=== PATIENT | female | born 1995 | race Caucasian/White ===

== ENCOUNTER 2017-02-09 16:16 | Emergency (ER) | payer OTHER ==
[~2017-02-09] VITALS: Ht 175.3 cm; Wt 61.5 kg
[2017-02-09 16:18] VITALS: TEMP 36.6; Ht 175.3 cm; Wt 61.5 kg
[2017-02-09] MEDS ORDERED: ACETAMINOPHEN 500 MG TAB PO STA (16:33)
[2017-02-09] MEDS ORDERED: PROMETHAZINE HCL INJ 25 MG/ML 1 ML VIAL IV STA (16:33)
[2017-02-09] MEDS ORDERED: KETOROLAC TROMETHAMINE 30 MG/ML VIAL IV STA (16:33)
[2017-02-09] MEDS ORDERED: SODIUM CHLORIDE 0.9% 1000ML 2,000 ML IV STA (16:33)
[2017-02-09] MEDS ORDERED: PROMETHAZINE HCL INJ 12.5 MG in SODIUM CHLORIDE 0.9% 50ML 50 ML IV ONE (16:45)
--- NOTE | 2017-02-09 16:45 | EMERGENCY ROOM VISIT NOTE ---
History Report prepared by Jazmín: Demond Umanzor Under the Supervision of: Dr. Yunior Kay M.D. First contact with patient: 16:29 Chief Complaint: VOMITING Stated Complaint: LIGHTHEADED,SHAKING,VOMITING History of Present Illness The patient is a 21 year old female who presents to the Emergency Room with complaints of persistent vomiting beginning two hours ago. She also complains of shakiness, abdominal cramping, generalized body pain, and lightheadedness. She notes that she started her period this morning. The patient states that she felt fine yesterday and upon waking up today. She rates the pain from her abdominal cramping as a 10/10 in severity. She denies eating anything abnormal. She has no history of similar symptoms. The patient denies any chance of . She denies any urinary symptoms, or fevers. She has taken Midol for her cramping, but vomited it up shortly afterwards. Source of History: patient Onset: Today Quality: other (vomiting) Timing: other (persistent) Associated Symptoms: + abdominal pain (cramping), No fevers, No urinary symptoms Note: Additional symptoms: generalized body pain, shakiness, lightheadedness. Review of Systems See HPI for pertinent positives & negatives. A total of 10 systems reviewed and were otherwise negative. Past Medical & Surgical Medical Problems: (1) Cellulitis of right external ear (2) Dental infection (3) Facial cellulitis (4) No Known Active Medical Problems (5) Pain, dental (6) Urinary tract infection Family History No pertinent family history stated. Social History Smoking Status: Never Smoker Occupation Status: student Current/Historical Medications Scheduled Ibuprofen (Midol), 2 TABS PO PRN UD Simvastatin (Zocor), 10 MG PO QPM Allergies Coded Allergies: Amoxicillin (Verified Allergy, Intermediate, HIVES, 02/09/17) Clavulanic Acid (Verified Allergy, Intermediate, HIVES, 02/09/17) Physical Exam Vital Signs Date Time Temp Pulse Resp B/P (MAP) Pulse Ox O2 Delivery O2 Flow Rate FiO2 02/09/17 19:34 75 16 115/72 99 02/09/17 18:17 69 15 113/62 100 02/09/17 16:18 36.6 119 18 130/81 99 Room Air Physical Exam GENERAL: Patient is in moderate distress secondary to pain HEENT: No acute trauma, normocephalic atraumatic, mucous membranes moist, no nasal congestion, no scleral icterus. NECK: No stridor, no adenopathy, no meningismus, trachea is midline. LUNGS: Clear to auscultation bilaterally, no wheeze, no rhonchi, breath sounds equal. HEART: Tachycardic with a regular rhythm. No murmurs. ABDOMEN: Moderately tender over the mid-low pelvis, soft, bowel sounds positive , no hernias, no peritonitis. EXTREMITIES: No cyanosis or edema, full range of motion of all the joints without pain or difficulty, no signs for acute trauma. NEUROLOGIC: Oriented x 3, no acute motor or sensory deficits, no focal weakness. SKIN: No rash, no jaundice, no diaphoresis. Medical Decision & Procedures ER Provider Diagnostic Interpretation: Radiology results as stated below per my review and radiologist interpretation: ULTRASOUND OF THE PELVIS FINDINGS: Uterus: The uterus is normal in size and echotexture, measuring 8.2 x 4.8 x 5.0 cm. Endometrium: The endometrium is normal in appearance, and the endometrial stripe is normal in thickness measuring up to 0.9 cm. Ovaries: The ovaries are normal in size and morphology. The right ovary measures 3.6 x 2.3 x 2.7 cm and the left ovary measures 3.7 x 2.0 x 3.0 cm. Small ovarian follicles are noted. Normal Doppler waveforms are shown within both ovaries. Pelvis: There is trace free fluid in the cul-de-sac. No concerning adnexal lesion is seen. IMPRESSION: 1. Unremarkable transabdominal sonographic assessment of the pelvis. 2. There is trace and likely physiologic free fluid in the cul-de-sac. 3. The patient declined the endovaginal examination. Electronically signed by: Yunior Nagy M.D. PA CHEST WITH ABDOMINAL SERIES FINDINGS: A PA chest radiograph is compared to study dated 11/13/2012. The cardiomediastinal silhouette is unremarkable. The lungs and pleural spaces are clear. No pneumothorax is seen. The bony thorax is grossly intact. Supine and erect abdominal radiographs are obtained. No prior studies are available for comparison at the time of dictation. There is a nonobstructed abdominal bowel gas pattern. Mild colonic fecal retention is observed. No evidence of intraperitoneal free air is seen. There are no abnormal abdominal calcifications. The lumbosacral spine and bony pelvis appear intact. IMPRESSION: 1. No active disease in the chest. 2. Nonobstructed abdominal bowel gas pattern. Electronically signed by: Yunior Nagy M.D. Laboratory Results 02/09/17 16:40 Red Blood Count 4.04, Mean Corpuscular Volume 84.7, Mean Corpuscular Hemoglobin 30.0, Mean Corpuscular Hemoglobin Concent 35.4, Mean Platelet Volume 9.3, Neutrophils (%) (Auto) 66.2, Lymphocytes (%) (Auto) 26.2, Monocytes (%) (Auto) 6.1, Eosinophils (%) (Auto) 0.8, Basophils (%) (Auto) 0.4, Neutrophils # (Auto) 6.57, Lymphocytes # (Auto) 2.60, Monocytes # (Auto) 0.61, Eosinophils # (Auto) 0.08, Basophils # (Auto) 0.04 02/09/17 16:40 Test 02/09/17 16:40 02/09/17 18:00 White Blood Count 9.93 K/uL (4.8-10.8) Red Blood Count 4.04 M/uL (4.2-5.4) Hemoglobin 12.1 g/dL (12.0-16.0) Hematocrit 34.2 % (37-47) Mean Corpuscular Volume 84.7 fL (80-100) Mean Corpuscular Hemoglobin 30.0 pg (25-34) Mean Corpuscular Hemoglobin Concent 35.4 g/dl (32-36) Platelet Count 260 K/uL (130-400) Mean Platelet Volume 9.3 fL (7.4-10.4) Neutrophils (%) (Auto) 66.2 % Lymphocytes (%) (Auto) 26.2 % Monocytes (%) (Auto) 6.1 % Eosinophils (%) (Auto) 0.8 % Basophils (%) (Auto) 0.4 % Neutrophils # (Auto) 6.57 K/uL (1.4-6.5) Lymphocytes # (Auto) 2.60 K/uL (1.2-3.4) Monocytes # (Auto) 0.61 K/uL (0.11-0.59) Eosinophils # (Auto) 0.08 K/uL (0-0.5) Basophils # (Auto) 0.04 K/uL (0-0.2) RDW Standard Deviation 38.3 fL (36.4-46.3) RDW Coefficient of Variation 12.4 % (11.5-14.5) Immature Granulocyte % (Auto) 0.3 % Immature Granulocyte # (Auto) 0.03 K/uL (0.00-0.02) Anion Gap 16.0 mmol/L (3-11) Est Creatinine Clear Calc Drug Dose 114.6 ml/min Estimated GFR () 130.9 Estimated GFR (Non- 112.9 BUN/Creatinine Ratio 14.9 (10-20) Calcium Level 9.2 mg/dl (8.5-10.1) Total Bilirubin 0.2 mg/dl (0.2-1) Aspartate Amino Transf (AST/SGOT) 14 U/L (15-37) Alanine Aminotransferase (ALT/SGPT) 17 U/L (12-78) Alkaline Phosphatase 53 U/L (45-117) Total Protein 7.6 gm/dl (6.4-8.2) Albumin 4.0 gm/dl (3.4-5.0) Globulin 3.6 gm/dl (2.5-4.0) Albumin/Globulin Ratio 1.1 (0.9-2) Lipase 158 U/L (73-393) Human Chorionic Gonadotropin, Qual NEG (NEG) Urine Color YELLOW Urine Appearance CLOUDY (CLEAR) Urine pH 7.5 (4.5-7.5) Urine Specific [place] 1.019 (1.000-1.030) Urine Protein NEG (NEG) Urine Glucose (UA) NEG (NEG) Urine Ketones NEG (NEG) Urine Occult Blood TRACE (NEG) Urine Nitrite NEG (NEG) Urine Bilirubin NEG (NEG) Urine Urobilinogen NEG (NEG) Urine Leukocyte Esterase NEG (NEG) Urine WBC (Auto) 1-5 /hpf (0-5) Urine RBC (Auto) 0-4 /hpf (0-4) Urine Hyaline Casts (Auto) 5-10 /lpf (0-5) Urine Epithelial Cells (Auto) >30 /lpf (0-5) Urine Bacteria (Auto) NEG (NEG) Urine Renal Epithelial Cells /lpf (0-5) Urine Crystals AMORPHOUS SEDIMENT (NONE Laboratory results reviewed by me. Medications Administered Medications (Trade) Dose Ordered Sig/Savanah Route Start Time Stop Time Status Last Admin Dose Admin Ketorolac Tromethamine (Toradol Inj) 30 mg NOW STAT IV 02/09/17 16:33 02/09/17 16:36 DC 02/09/17 17:19 30 MG Acetaminophen (Tylenol Tab) 1,000 mg NOW STAT PO 02/09/17 16:33 02/09/17 16:36 DC 02/09/17 17:17 1,000 MG Sodium Chloride 2,000 ml @ 999 mls/hr Q2H1M STAT IV 02/09/17 16:33 02/09/17 18:33 DC 02/09/17 17:01 999 MLS/HR Promethazine HCl 12.5 mg/Sodium Chloride 50.5 ml @ 202 mls/hr NOW ONCE IV 02/09/17 16:45 02/09/17 16:59 DC 02/09/17 17:01 202 MLS/HR Ondansetron HCl (ZOFRAN ODT 4MG Home Pack) 1 homepack UD ONCE PO 02/09/17 19:30 02/09/17 19:31 DC 02/09/17 19:34 1 HOMEPACK ED Course 1630: The patient was evaluated in room C11B. A complete history and physical exam was performed. 1633: Ordered Sodium Chloride 2000 ml @ 999 mls/hr IV, Tylenol Tab 1000 mg PO, Toradol Inj 30 mg IV, Phenergan Inj 12.5 mg IV. 1645: Ordered Promethazine HCl 12.5 mg/Sodium Chloride 50.5 ml @ 202 mls/hr IV. 1930: Ordered Zofran Odt 4 mg homepack PO. Reevaluated the patient. Discussed results and discharge instructions: she verbalized understanding and agreement. The patient is ready for discharge. Medical Decision The patient is a 21 year old female who presents to the ED with complaints of vomiting. Differential diagnoses considered include menstrual cramping, ovarian cyst, ovarian torsion, bowel obstruction, electrolyte imbalance, appendicitis, and UTI. There is no leukocytosis or concerning anemia. No significant electrolyte abnormality, kidney failure or hepatitis. There is no pancreatitis. testing is negative. Pelvic ultrasound does not show any large ovarian cyst, no evidence for ovarian torsion. Obstruction series showed no bowel obstruction , pneumonia or free air. Urinalysis shows contamination, no infection. The patient was given IV saline, IV Phenergan, IV Toradol and oral Tylenol, she feels markedly better. The patient is not toxic, she is not febrile. She has done well in our emergency room. The patient is being discharged home. Her pelvic cramping and vomiting may be related to her menstrual cycle. I find nothing emergent. The patient was encouraged to start with a bland diet, I gave some Zofran for nausea. If worsening, she can return. Impression Primary Impression: Pelvic pain Additional Impression: Vomiting Scribe Attestation The scribe's documentation has been prepared under my direction and personally reviewed by me in its entirety. I confirm that the note above accurately reflects all work, treatment, procedures, and medical decision making performed by me. Departure Information Dispostion Home / Self-Care Referrals No Doctor, Assigned (PCP) Forms HOME CARE DOCUMENTATION FORM, IMPORTANT VISIT INFORMATION Patient Instructions My [facility] Additional Instructions bland diet---crackers, soup, gatorade, toast motrin/tylenol for pain rest fluids zofran 1-2 tab every 6 hours for nausea as needed return if worsening lab testing today was all ok as discussed, imaging was ok as well Problem Qualifiers
[2017-02-09] MEDS ORDERED: IBUP1CAP PO (16:47)
[2017-02-09 16:50] LABS: HEMATOCRIT 34.2 % (37-47); MEAN CELL VOLUME 84.7 fL (80-100); MEAN CORPUSCULAR HGB CONC 35.4 g/dl (32-36); MEAN PLATELET VOLUME 9.3 fL (7.4-10.4); PLATELET COUNT 260 K/uL (130-400); RED BLOOD COUNT 4.04 M/uL (4.2-5.4); WHITE BLOOD COUNT 9.93 K/uL (4.8-10.8)
[2017-02-09 17:10] LABS: BUN/CREATININE RATIO 14.9 (10-20); CALCIUM 9.2 mg/dl (8.5-10.1); CREATININE 0.76 mg/dl (0.60-1.20); POTASSIUM 3.1 mmol/L (3.5-5.1)
[2017-02-09 17:13] LABS: ALB/GLOB RATIO 1.1 (0.9-2)
[2017-02-09 17:18] LABS: PREG INTERNAL NEGATIVE QC NEG CLEAR BACKGROUND; PREG INTERNAL POSITIVE QC POS CONTROL LINE
[2017-02-09 17:19] LABS: BASO % 0.4 %; BASO ABS # 0.04 K/uL (0-0.2); COMPLETE YES; EOS % 0.8 %; IG% 0.3 %; LYMPH % 26.2 %; MONO % 6.1 %; NEUT % 66.2 %
--- NOTE | 2017-02-09 17:52 | DIAGNOSTIC IMAGING REPORT ---
ULTRASOUND OF THE PELVIS CLINICAL HISTORY: Pelvic pain. Nausea and vomiting. Diarrhea. COMPARISON STUDY: Pelvic ultrasound dated 10/14/2011. TECHNIQUE: Real-time, grayscale, and color flow sonography of the pelvis is performed transabdominally. Images are reviewed in the transverse and longitudinal planes. The patient declined the endovaginal examination. FINDINGS: Uterus: The uterus is normal in size and echotexture, measuring 8.2 x 4.8 x 5.0 cm. Endometrium: The endometrium is normal in appearance, and the endometrial stripe is normal in thickness measuring up to 0.9 cm. Ovaries: The ovaries are normal in size and morphology. The right ovary measures 3.6 x 2.3 x 2.7 cm and the left ovary measures 3.7 x 2.0 x 3.0 cm. Small ovarian follicles are noted. Normal Doppler waveforms are shown within both ovaries. Pelvis: There is trace free fluid in the cul-de-sac. No concerning adnexal lesion is seen. IMPRESSION: 1. Unremarkable transabdominal sonographic assessment of the pelvis. 2. There is trace and likely physiologic free fluid in the cul-de-sac. 3. The patient declined the endovaginal examination. Electronically signed by: Yunior Nagy M.D. 02/09/2017 5:50 PM Dictated Date/Time: 02/09/2017 5:49 PM
[2017-02-09 18:40] LABS: URINE APPEARANCE CLOUDY (CLEAR); URINE BILIRUBIN NEG (NEG); URINE COLOR YELLOW; URINE EPITHELIAL CELL AUTO >30 /lpf (0-5); URINE NITRITE NEG (NEG); URINE PH 7.5 (4.5-7.5); URINE SPECIFIC GRAVITY 1.019 (1.000-1.030); UROBILINOGEN NEG (NEG); ZZUR CULT IF INDIC CLEAN CATCH NO
[2017-02-09 18:49] LABS: MANUAL MICROSCOPIC REQUIRED? NO; REVIEW REQ? YES
--- NOTE | 2017-02-09 18:59 | DIAGNOSTIC IMAGING REPORT ---
PA CHEST WITH ABDOMINAL SERIES CLINICAL HISTORY: Nausea and vomiting. Generalized abdominal pain. FINDINGS: A PA chest radiograph is compared to study dated 11/13/2012. The cardiomediastinal silhouette is unremarkable. The lungs and pleural spaces are clear. No pneumothorax is seen. The bony thorax is grossly intact. Supine and erect abdominal radiographs are obtained. No prior studies are available for comparison at the time of dictation. There is a nonobstructed abdominal bowel gas pattern. Mild colonic fecal retention is observed. No evidence of intraperitoneal free air is seen. There are no abnormal abdominal calcifications. The lumbosacral spine and bony pelvis appear intact. IMPRESSION: 1. No active disease in the chest. 2. Nonobstructed abdominal bowel gas pattern. Electronically signed by: Yunior Nagy M.D. 02/09/2017 6:57 PM Dictated Date/Time: 02/09/2017 6:56 PM
[2017-02-09] MEDS ORDERED: ONDANSETRON HOME PACK 4MG OD TAB PO ONE (19:30)
[2017-02-09 19:34] VITALS: BP 115/72; PULSE 75; O2SAT 99
[2017-02-09] MEDS ORDERED: SIMV10TA5 PO (23:37)
== END 2017-02-09 19:36 | disposition home or self-care (01) ==
LOC: C.EDB 16:17 → C.EDC 19:36
DX: R10.2 Pelvic and perineal pain (principal); R11.10 Vomiting, unspecified

== ENCOUNTER 2017-03-12 09:36 | Emergency (ER) | payer OTHER ==
[~2017-03-12] VITALS: Ht 175.3 cm; Wt 61.1 kg
[~2017-03-12 09:36] MED LIST: IBUP1CAP PO; SIMV10TA5 PO
[2017-03-12 09:38] VITALS: TEMP 36.5; Ht 175.3 cm; Wt 61.1 kg
[2017-03-12 10:34] LABS: BASO % 0.4 %; BASO ABS # 0.03 K/uL (0-0.2); COMPLETE YES; EOS % 0.6 %; HEMATOCRIT 36.4 % (37-47); IG% 0.1 %; LYMPH % 16.5 %; LYMPH ABS # 1.39 K/uL (1.2-3.4); MEAN CELL VOLUME 86.7 fL (80-100); MEAN CORPUSCULAR HGB CONC 34.6 g/dl (32-36); MEAN PLATELET VOLUME 9.6 fL (7.4-10.4); MONO % 5.2 %; NEUT % 77.2 %; PLATELET COUNT 220 K/uL (130-400)
[2017-03-12] MEDS ORDERED: KETOROLAC TROMETHAMINE 30 MG/ML VIAL IV STA (10:45)
[2017-03-12] MEDS ORDERED: PROMETHAZINE HCL INJ 25 MG in SODIUM CHLORIDE 0.9% 50ML 50 ML IV STA (10:45)
[2017-03-12] MEDS ORDERED: SODIUM CHLORIDE 0.9% 1000ML 1,000 ML IV STA ×2 (10:45)
[2017-03-12 10:51] LABS: URINE APPEARANCE CLOUDY (CLEAR); URINE BILIRUBIN NEG (NEG); URINE COLOR YELLOW; URINE NITRITE NEG (NEG); URINE PH 7.5 (4.5-7.5); URINE SPECIFIC GRAVITY 1.024 (1.000-1.030); UROBILINOGEN NEG (NEG)
[2017-03-12 10:53] LABS: ALT/SGPT 16 U/L (12-78); AST/SGOT 12 U/L (15-37); BLOOD UREA NITROGEN 8 mg/dl (7-18); CALCIUM 8.8 mg/dl (8.5-10.1); CARBON DIOXIDE 26 mmol/L (21-32); CHLORIDE 110 mmol/L (98-107); CREATININE 0.75 mg/dl (0.60-1.20); GLUCOSE 95 mg/dl (70-99); POTASSIUM 3.6 mmol/L (3.5-5.1); SODIUM 141 mmol/L (136-145)
[2017-03-12 10:54] LABS: PARTIAL THROMBOPLASTIN RATIO 0.9; PROTHROMBIN TIME (PATIENT) 11.1 SECONDS (9.0-12.0)
[2017-03-12 10:56] LABS: ALKALINE PHOSPHATASE 50 U/L (45-117)
--- NOTE | 2017-03-12 11:10 | EMERGENCY ROOM VISIT NOTE ---
History Report prepared by Jazmín: Toshia Plasencia Under the Supervision of: Dr. Augusto Conti M.D. First contact with patient: 09:49 Chief Complaint: PELVIC PAIN Stated Complaint: SEVERE CRAMPS, PELVIC PAIN, VOMITING History of Present Illness The patient is a 21 year old white female with no significant past medical history who presents to the ED with a cc of severe pelvic pain beginning this morning. Positive lower abdominal pain, nausea, vomiting, lightheadedness. Negative urinary symptoms, recent travel, recent trauma or injury, sick contacts. The patient states that she started bleeding with her menstrual cycle this morning and she is having severe lower abdominal cramping. She rates her pain as a 9/10 in severity. She is also complaining of nausea and vomiting and states that she has vomited 3 times in the past 3.5 hours. She took Tylenol for her pain, but vomited it up. This is the second month in a row that she has had severe pain with menstruation. She has not seen an ob-caser up in about 3 years. She does not take any OCP. Mother states that she had similar pelvic cramping with her menstrual periods when she was the same age. Source of History: patient, parent Onset: this morning Position: pelvis Symptom Intensity: 9/10 Quality: cramping Timing: constant Modifying Factors (Worsening): other (menstrual period) Associated Symptoms: + nausea, + vomiting, No urinary symptoms Note: Pt notes lightheadedness. Denies recent travel, recent trauma or injury, sick contacts. Review of Systems See HPI for pertinent positives and negatives. A total of ten systems were reviewed and were otherwise negative. Past Medical & Surgical Medical Problems: (1) Cellulitis of right external ear (2) Dental infection (3) Facial cellulitis (4) No Known Active Medical Problems (5) Pain, dental (6) Urinary tract infection Family History Diabetes mellitus Social History Smoking Status: Never Smoker Alcohol Use: occasionally Occupation Status: student Current/Historical Medications Scheduled Ondasetron Odt (Zofran Odt), 4 MG SL Q6H Simvastatin (Zocor), 10 MG PO QPM Scheduled PRN Tramadol (Ultram), 50 MG PO Q8H PRN for Pain Allergies Coded Allergies: Amoxicillin (Verified Allergy, Intermediate, HIVES, 03/12/17) Clavulanic Acid (Verified Allergy, Intermediate, HIVES, 03/12/17) Physical Exam Vital Signs Date Time Temp Pulse Resp B/P (MAP) Pulse Ox O2 Delivery O2 Flow Rate FiO2 03/12/17 12:39 76 20 127/65 99 03/12/17 11:17 66 20 114/66 100 Room Air 03/12/17 09:38 36.5 88 18 124/76 100 Room Air Physical Exam GENERAL: Awake, alert, well-appearing, NAD HENT: Normocephalic, atraumatic. EYES: Normal conjunctiva. Sclera non-icteric. NECK: Supple. No nuchal rigidity. FROM. RESPIRATORY: CTAB, no rhonchi, wheezing, crackles CARDIAC: RRR, no MRG ABDOMEN: Soft, LLQ suprapubic TTP, ND, BS+, negative obturator psoas and Malik' s MSK: No chest wall TTP, no LE edema NEURO: GCS 15, CN 2-12 intact, moves all 4s on command SKIN: No rash or jaundice noted. Medical Decision & Procedures Laboratory Results 03/12/17 10:09 Red Blood Count 4.20, Mean Corpuscular Volume 86.7, Mean Corpuscular Hemoglobin 30.0, Mean Corpuscular Hemoglobin Concent 34.6, Mean Platelet Volume 9.6, Neutrophils (%) (Auto) 77.2, Lymphocytes (%) (Auto) 16.5, Monocytes (%) (Auto) 5.2, Eosinophils (%) (Auto) 0.6, Basophils (%) (Auto) 0.4, Neutrophils # (Auto) 6.48, Lymphocytes # (Auto) 1.39, Monocytes # (Auto) 0.44, Eosinophils # (Auto) 0.05, Basophils # (Auto) 0.03 03/12/17 10:09 Test 03/12/17 10:09 03/12/17 10:32 White Blood Count 8.40 K/uL (4.8-10.8) Red Blood Count 4.20 M/uL (4.2-5.4) Hemoglobin 12.6 g/dL (12.0-16.0) Hematocrit 36.4 % (37-47) Mean Corpuscular Volume 86.7 fL (80-100) Mean Corpuscular Hemoglobin 30.0 pg (25-34) Mean Corpuscular Hemoglobin Concent 34.6 g/dl (32-36) Platelet Count 220 K/uL (130-400) Mean Platelet Volume 9.6 fL (7.4-10.4) Neutrophils (%) (Auto) 77.2 % Lymphocytes (%) (Auto) 16.5 % Monocytes (%) (Auto) 5.2 % Eosinophils (%) (Auto) 0.6 % Basophils (%) (Auto) 0.4 % Neutrophils # (Auto) 6.48 K/uL (1.4-6.5) Lymphocytes # (Auto) 1.39 K/uL (1.2-3.4) Monocytes # (Auto) 0.44 K/uL (0.11-0.59) Eosinophils # (Auto) 0.05 K/uL (0-0.5) Basophils # (Auto) 0.03 K/uL (0-0.2) RDW Standard Deviation 39.6 fL (36.4-46.3) RDW Coefficient of Variation 12.4 % (11.5-14.5) Immature Granulocyte % (Auto) 0.1 % Immature Granulocyte # (Auto) 0.01 K/uL (0.00-0.02) Prothrombin Time 11.1 SECONDS (9.0-12.0) Prothromb Time International Ratio 1.0 (0.9-1.1) Activated Partial Thromboplast Time 23.8 SECONDS (21.0-31.0) Partial Thromboplastin Ratio 0.9 Anion Gap 5.0 mmol/L (3-11) Est Creatinine Clear Calc Drug Dose 115.4 ml/min Estimated GFR () 133.0 Estimated GFR (Non- 114.7 BUN/Creatinine Ratio 10.0 (10-20) Calcium Level 8.8 mg/dl (8.5-10.1) Total Bilirubin 0.4 mg/dl (0.2-1) Direct Bilirubin < 0.1 mg/dl (0-0.2) Aspartate Amino Transf (AST/SGOT) 12 U/L (15-37) Alanine Aminotransferase (ALT/SGPT) 16 U/L (12-78) Alkaline Phosphatase 50 U/L (45-117) Total Protein 7.2 gm/dl (6.4-8.2) Albumin 3.9 gm/dl (3.4-5.0) Urine Color YELLOW Urine Appearance CLOUDY (CLEAR) Urine pH 7.5 (4.5-7.5) Urine Specific [place] 1.024 (1.000-1.030) Urine Protein NEG (NEG) Urine Glucose (UA) NEG (NEG) Urine Ketones NEG (NEG) Urine Occult Blood 3+ (NEG) Urine Nitrite NEG (NEG) Urine Bilirubin NEG (NEG) Urine Urobilinogen NEG (NEG) Urine Leukocyte Esterase TRACE (NEG) Urine RBC (Auto) /hpf (0-4) Urine Hyaline Casts (Auto) /lpf (0-5) Urine RBC 10-30 /hpf (0-4) Urine WBC 10-30 /hpf (0-5) Urine Epithelial Cells 20-30 /lpf (0-5) Urine Renal Epithelial Cells /lpf (0-5) Urine Bacteria 2+ (NEG) Urine Pathogenic Casts /lpf (0) Urine Yeast (Auto) (NONE PRSENT) Urine Test NEG (NEG) Laboratory results reviewed by me. Medications Administered Medications (Trade) Dose Ordered Sig/[place]avanah Route Start Time Stop Time Status Last Admin Dose Admin Ketorolac Tromethamine (Toradol Inj) 30 mg NOW STAT IV 03/12/17 10:45 03/12/17 10:47 DC 03/12/17 11:18 30 MG Promethazine HCl 25 mg/Sodium Chloride 51 ml @ 204 mls/hr NOW STAT IV 03/12/17 10:45 03/12/17 10:59 DC 03/12/17 11:18 204 MLS/HR Sodium Chloride 1,000 ml @ 999 mls/hr Q1H1M STAT IV 03/12/17 10:45 03/12/17 11:45 DC 03/12/17 11:18 999 MLS/HR ED Course 1020: The patient was evaluated in room A12B. A complete history and physical exam was performed. Pt and family agreed to defer US. Pt wanted to defer pelvic for future ob-caser up follow-up. 1045: NSS 1000 ml @ 999 mls/hr IV, NSS 1000 ml @ 999 mls/hr IV, Promethazine HCl 25 mg/Sodium Chloride 51 ml @ 204 mls/hr IV, Toradol 30 mg IV 1212: I reassessed the patient at this time. She is feeling better and resting comfortably. I discussed the results and treatment plan with the patient and her mother. The patient declined a pelvic exam and wants to follow-up as an outpatient. She was able to tolerate PO. I answered all pertaining questions that she had. She expressed understanding and verbalized agreement. The patient will be discharged home. Medical Decision Differential diagnoses includes dysmenorrhea, torsion, ovarian cyst, fibroids, ectopic . The patient is a 21 year old white female with no significant past medical history who presents to the ED with a cc of severe pelvic pain beginning this morning. Patient was given around the anti-medics and pain control in addition to fluids. Patient felt much improved. After discussing that typically with this type of complaint pelvic exam is performed and the patient deferred the speculum exam to a f/u SURFACE WATER MANAGER physician. We discussed the necessity of an ultrasound however given the recent negative study one month prior without any evidence of fibroids or cysts elected not to do it at this time as her pain improved just with medical management. Patient's UA did show signs of infection however likely contaminated given the many epithelial cells. Patient had no other urinary symptoms decision was not treated for UTI. Patient longer had any lower abdominal pain. Discussed that we cannot completely rule out all etiologies given that we do not do pelvic exam nor did we do an ultrasound. Patient was comfortable with the plan of care. Patient was given strict follow , discharge, return precautions. Patient agreed with plan of care was safely discharged to home in the care of her mother. Medication Reconcilliation Current Medication List: was personally reviewed by me Blood Pressure Screening Patient's blood pressure: Normal blood pressure Impression Primary Impression: Dysmenorrhea Additional Impression: Menstrual bleeding problem Scribe Attestation The scribe's documentation has been prepared under my direction and personally reviewed by me in its entirety. I confirm that the note above accurately reflects all work, treatment, procedures, and medical decision making performed by me. Departure Information Dispostion Home / Self-Care Prescriptions Tramadol (Ultram) 50 Mg Tab 50 MG PO Q8H Y for Pain, #12 TAB Prov: Augusto Conti M.D. 03/12/17 Ondasetron Odt (ZOFRAN ODT) 4 Mg Tab 4 MG SL Q6H for Nausea, #6 TAB Prov: Augusto Conti M.D. 03/12/17 Referrals Darrel Ojeda M.D. (PCP) Carmina Acosta D.O. Forms HOME CARE DOCUMENTATION FORM, IMPORTANT VISIT INFORMATION, WORK / SCHOOL INSTRUCTIONS Patient Instructions ED Cramping Menstrual, My [facility] [employer] Additional Instructions Please return to the emergency department if you have worsening or recurrent symptoms. As we discussed his follow-up with her primary care physician as well as SURFACE WATER MANAGER physician. Please take your medications as prescribed. You may take Motrin or ibuprofen with food up to 800 mg every 6 hours with no more than 3200 mg in a 24-hour period. This may cause upset stomach or kidney problems, please do not take for more than 2-3 consecutive days. You may take Tylenol or acetaminophen 1000 mg every 6 hours as needed with no more than 4000 mg in a 24-hour period. Problem Qualifiers
[2017-03-12 11:12] LABS: MANUAL MICROSCOPIC REQUIRED? YES; REVIEW REQ? NO; SULFASALICYLIC ACID NEG (NEG)
[2017-03-12 11:14] LABS: URINE BACTERIA 2+ (NEG)
[2017-03-12] MEDS ORDERED: TRAM-10 PO (12:20)
[2017-03-12] MEDS ORDERED: ONDA4TAB10 SL (12:20)
[2017-03-12 12:39] VITALS: BP 127/65; PULSE 76; O2SAT 99
== END 2017-03-12 12:41 | disposition home or self-care (01) ==
LOC: C.EDB 09:37 → C.EDA 12:41
DX: N94.6 Dysmenorrhea, unspecified (principal); R11.2 Nausea with vomiting, unspecified; Z87.440 Personal history of urinary (tract) infections; Z83.3 Family history of diabetes mellitus; Z79.899 Other long term (current) drug therapy